=== PATIENT | female | born 1965 | race African-American/Black ===

== ENCOUNTER → 2024-07-05 | Outpatient (REF) | payer MEDICARE, OTHER ==
[~2024-07-05] MED LIST: LYRICA75 MG PO; MULTI-VITAMIN1 EACH PO
== END ==
LOC: RAD 11:18 → EDSTATUS 07-09 14:00
PROVIDERS: ATTEND Surgery
DX: Z01.818 Encounter for other preprocedural examination (principal); K44.9 Diaphragmatic hernia without obstruction or gangrene; E66.01 Morbid (severe) obesity due to excess calories
CPT/HCPCS: 93005

== ENCOUNTER 2024-08-06 05:46 | Inpatient (IN) | payer MEDICARE, OTHER ==
[~2024-08-06] VITALS: Ht 167.6 cm; Wt 104.3 kg
[2024-08-06] MEDS ORDERED: LACTATED RINGER'S 1,000 ML ONE (06:42)
[2024-08-06] MEDS ORDERED: LIDOCAINE HCL 2% LOCAL INJ 5 ML SDV VIAL INJ ONE (06:58)
[2024-08-06] MEDS ORDERED: MIDAZOLAM HCL 2 MG/2 ML VIAL ONE (06:59)
[2024-08-06] MEDS ORDERED: SEVOFLURANE INHAL SOLN 250 ML PEN BTL ONE (06:59)
[2024-08-06] MEDS ORDERED: PROPOFOL IV EMULSION 10 MG/ML 20 ML VIAL ONE (06:59)
[2024-08-06] MEDS ORDERED: FENTANYL CITRATE/PF 100MCG/2 ML INJ ONE ×2 (06:59→08:07)
[2024-08-06] MEDS ORDERED: ROCURONIUM BROMIDE 1 ML IV ONE (06:59)
[2024-08-06] MEDS ORDERED: ACETAMINOPHEN 1000 MG/100 ML 100 ML IV ONE (06:59)
[2024-08-06] MEDS ORDERED: FAMOTIDINE 20 MG/2 ML VIAL IV ONE (07:04)
[2024-08-06] MEDS ORDERED: HYDROCODONE/APAP 7.5MG-325MG 1 EA TAB PO PRN (07:30)
[2024-08-06] MEDS ORDERED: HYDROXYZINE HCL 50 MG/ML VIAL IM ONE (08:00)
[2024-08-06] MEDS ORDERED: ONDANSETRON HCL INJ 2MG/ML 2ML 2 MG/ML VIAL ONE (08:05)
[2024-08-06] MEDS ORDERED: DEXAMETHASONE SOD PHOS INJ 4 MG/ML SDV ONE (08:05)
[2024-08-06] MEDS ORDERED: SUGAMMADEX SODIUM 200 MG/2 ML VIAL IV ONE (08:20)
[2024-08-06] MEDS: HYDROMORPHONE 1MG/1ML INJ ONE ×2 (10:13→19:33)
[2024-08-06] MEDS: ONDANSETRON HCL INJ 2MG/ML 2ML 2 MG/ML VIAL IV PRN (11:26)
[2024-08-06] MEDS: LACTATED RINGER'S 1,000 ML IV SCH (11:27)
[2024-08-06] MEDS: SCOPOLAMINE 1 MG PATCH TOP SCH (11:33)
[2024-08-06 12:07] VITALS: PULSE 63; RESP 18; O2SAT 98
[2024-08-06 12:18] VITALS: BP 151/88; PULSE 63; RESP 19; TEMP 97.4; O2SAT 98
[2024-08-06 13:12] VITALS: BP 151/88; PULSE 63; RESP 19; TEMP 97.4; O2SAT 98
[2024-08-06 15:21] VITALS: BP 139/78; PULSE 60; RESP 16; TEMP 97.5; O2SAT 100
[2024-08-06] MEDS: Morphine 2mg Syringe 2 MG/ML SYR IV PRN (18:06)
[2024-08-06 18:10] VITALS: PULSE 63; RESP 18; O2SAT 96
[2024-08-06] MEDS: CEFAZOLIN SODIUM 2 GM ONE (19:32)
[2024-08-06 20:00] VITALS: BP 149/83; PULSE 63; RESP 18; TEMP 97.2; O2SAT 100
[2024-08-06] MEDS: ENOXAPARIN SOD INJ 40 MG/0.4 ML SYR SC SCH (20:00)
[2024-08-07] VITALS: BP 105/55; PULSE 62; RESP 20; TEMP 97.3; O2SAT 94
[2024-08-07 04:32] VITALS: BP 92/47; PULSE 62; RESP 18; TEMP 98.2; O2SAT 99
[2024-08-07 06:58] VITALS: PULSE 61; RESP 18; O2SAT 94
[2024-08-07 07:42] VITALS: BP 101/57; PULSE 58; RESP 19; TEMP 98; O2SAT 97
[2024-08-07 07:53] LABS: BASOPHILS % 0.2 % (0.0-1.0); HEMATOCRIT 35.2 % (34.2-44.1); HEMOGLOBIN 11.3 g/dL (12.0-16.0); LYMPHOCYTES # (AUTO) 0.9 (1.0-3.2); LYMPHOCYTES % 14.1 % (18.0-39.1); MEAN CORPUSCULAR HEMOGLOBIN 27.8 pg (28-32); MEAN CORPUSCULAR HGB CONC 32.1 g/dL (31-35); MEAN CORPUSCULAR VOLUME 86.5 fL (81-99); MONOCYTES # (AUTO) 0.4 (0.2-0.8); MONOCYTES % 6.2 % (4.4-11.3); NEUTROPHILS % 79.2 % (38.7-80.0); PLATELET COUNT 213 x10e3/uL (140-360); RED BLOOD COUNT 4.07 x10e6/uL (3.6-5.1); WHITE BLOOD COUNT 6.26 x10e3/uL (4.8-10.8)
[2024-08-07 08:19] LABS: ALBUMIN 3.4 g/dL (3.5-5.0); ALBUMIN/GLOBULIN RATIO 1.1 (0.8-2.0); ANION GAP 14.1 mmol/L (8-16); BILIRUBIN,TOTAL 0.3 mg/dL (0.2-1.2); CREATININE, SERUM 0.78 mg/dL (0.57-1.11); MAGNESIUM 1.8 MG/DL (1.3-2.1); PHOSPHORUS 2.6 MG/DL (2.3-4.7); POTASSIUM 4.1 mmol/L (3.5-5.1); TOTAL PROTEIN 6.5 g/dL (6.5-8.1)
[2024-08-07 09:54] VITALS: BP 101/57; PULSE 58; RESP 19; TEMP 98; O2SAT 97
== END 2024-08-07 10:35 | disposition home or self-care (01) | DRG 621 ==
LOC: OR 05:46 → PACU V 07:29 → MED/SURG 11:00 → OBSVTOIN 16:45
PROVIDERS: ADMIT Internal Medicine; ATTEND Internal Medicine
PROC: 0BQT4ZZ Repair Diaphragm, Percutaneous Endoscopic Approach (ICD-10-PCS; 2024-08-06)
PROC: 0FB24ZX Excision of Left Lobe Liver, Percutaneous Endoscopic Approach, Diagnostic (ICD-10-PCS; 2024-08-06)
PROC: 0DB64ZZ Excision of Stomach, Percutaneous Endoscopic Approach (ICD-10-PCS; principal; 2024-08-06 07:52)
DX: E66.01 Morbid (severe) obesity due to excess calories (principal); K44.9 Diaphragmatic hernia without obstruction or gangrene; Z68.37 Body mass index [BMI] 37.0-37.9, adult; K76.0 Fatty (change of) liver, not elsewhere classified; K21.9 Gastro-esophageal reflux disease without esophagitis; I10 Essential (primary) hypertension; R13.10 Dysphagia, unspecified; M19.90 Unspecified osteoarthritis, unspecified site; Z98.84 Bariatric surgery status; Z90.710 Acquired absence of both cervix and uterus; Z90.722 Acquired absence of ovaries, bilateral; Z90.79 Acquired absence of other genital organ(s); Z82.49 Family history of ischemic heart disease and other diseases of the circulatory system
CPT/HCPCS: 36415; 80053; 83735; 84100; 85025; 88307; 88313; 88342; 94799; J1100; J1171; J1308; J1650; J2003; J2250; J2270; J2405; Q0177